=== PATIENT | female | born 1980 | race African-American/Black ===

== ENCOUNTER 2016-12-26 20:39 | Emergency (ER) | payer MEDICAID, SELFPAY ==
[~2016-12-26] VITALS: Ht 162.6 cm; Wt 111.4 kg
[2016-12-26] MEDS ORDERED: ACETAMINOPHEN 325 MG TABLET PO ONE (21:00)
[2016-12-26] MEDS ORDERED: ACETAMINOPHEN 500 MG TABLET PO ONE (21:00)
[2016-12-26] MEDS ORDERED: ACETAMINOPHEN 500 MG TABLET ONE (21:26)
[2016-12-26] MEDS ORDERED: SODIUM CHLORIDE 0.9% 1,000ML IVBOLUS ONE (21:30)
[2016-12-26 21:37] LABS: ASPARTATE AMINO TRANSFERASE 14 U/L (15-37); BLOOD UREA NITROGEN 6 mg/dL (7-18)
[2016-12-26] MEDS ORDERED: KETOROLAC 30 MG/1 ML IVPush ONE (23:00)
[2016-12-26] MEDS ORDERED: KETOROLAC 30 MG/1 ML ONE (23:04)
[2016-12-26 23:10] VITALS: BP 139/75
[2016-12-27] MEDS ORDERED: HYDROcodone/APAP 5/325 TABLET ONE (00:32)
== END 2016-12-27 00:51 | disposition home or self-care (01) ==
LOC: ED 23:42
DX: R10.9 Unspecified abdominal pain (principal); N30.00 Acute cystitis without hematuria; J15.9 Unspecified bacterial pneumonia; F12.10 Cannabis abuse, uncomplicated; Z90.49 Acquired absence of other specified parts of digestive tract
CPT/HCPCS: 36415; 74176; 80053; 81001; 83690; 84703; 85025; 87086; 96361; 96374; 99285; J1885; J7030